=== PATIENT | male | born 1990 | race Caucasian/White ===

== ENCOUNTER 2017-03-09 07:03 | Emergency (ER) | payer OTHER ==
[~2017-03-09] VITALS: Ht 190.5 cm; Wt 165.1 kg
[~2017-03-09 07:03] MED LIST: ATIVAN1 MG PO; PRILOSEC 20 MG20 MG PO
[2017-03-09 09:54] LABS: ABSOLUTE NEUTROPHILS 5.2 thou/uL (1.4-8.2); BASOPHILS 0.8 % (0.0-2.0); EOSINOPHILS 2.7 % (0.0-3.0); HEMATOCRIT 43.6 % (42.0-52.0); LYMPHOCYTES 31.3 % (24.0-44.0); MCH 30.3 pg (26.0-34.0); MCHC 34.5 g/dL (28.0-37.0); MCV 87.8 fL (80.0-100.0); PLATELET COUNT 163 thou/uL (150-400); POLYS 58.2 % (36.0-66.0); RBC 4.97 mil/uL (4.50-6.00); RDW 14.4 % (10.5-14.5); WBC 8.8 thou/uL (4.0-11.0)
[2017-03-09 09:55] LABS: MANUAL DIFF NO
[2017-03-09 10:04] LABS: CALCIUM 9.3 mg/dL (8.5-10.1); POTASSIUM 4.2 mmol/L (3.5-5.1)
[2017-03-09 10:08] LABS: APTT 27.1 Seconds (24.5-32.8)
[2017-03-09 10:10] LABS: TOTAL BILIRUBIN 0.4 mg/dL (<0.1-1.0); TOTAL PROTEIN 7.5 g/dL (6.4-8.2)
[2017-03-09] MEDS ORDERED: LEVSIN0.125 MG PO (10:35)
[2017-03-09] MEDS ORDERED: ANUSOL-HC25 MG RECTAL (10:35)
[2017-03-09] MEDS ORDERED: HYDROCORTISONE30 G9 RECTAL (10:35)
[2017-03-09 11:01] VITALS: BP 148/95
== END 2017-03-09 11:01 | disposition home or self-care (01) ==
LOC: ER 07:03
PROVIDERS: Emergency Medicine
DX: K62.5 Hemorrhage of anus and rectum (principal); G89.29 Other chronic pain; R19.7 Diarrhea, unspecified; R10.9 Unspecified abdominal pain; I10 Essential (primary) hypertension; E78.00 Pure hypercholesterolemia, unspecified; F10.99 Alcohol use, unspecified with unspecified alcohol-induced disorder; K21.9 Gastro-esophageal reflux disease without esophagitis; Z88.8 Allergy status to other drugs, medicaments and biological substances

== ENCOUNTER 2018-03-14 02:14 | Emergency (ER) | payer OTHER ==
[~2018-03-14] VITALS: Ht 190.5 cm; Wt 163.3 kg
[~2018-03-14 02:14] MED LIST changes: +ANUSOL-HC25 MG RECTAL; +HYDROCORTISONE30 G9 RECTAL; +LEVSIN0.125 MG PO; +NORCO 5-325 TA1 EACH PO
[2018-03-14] MEDS ORDERED: MOBIC15 MG PO (02:47)
[2018-03-14 03:06] VITALS: BP 161/77
== END 2018-03-14 03:17 | disposition home or self-care (01) ==
LOC: ER 02:14
DX: H66.91 Otitis media, unspecified, right ear (principal); F17.210 Nicotine dependence, cigarettes, uncomplicated; I10 Essential (primary) hypertension; E78.00 Pure hypercholesterolemia, unspecified; G47.30 Sleep apnea, unspecified; K21.9 Gastro-esophageal reflux disease without esophagitis; E78.5 Hyperlipidemia, unspecified; Z88.8 Allergy status to other drugs, medicaments and biological substances

== ENCOUNTER 2018-08-16 10:07 | Emergency (ER) | payer OTHER ==
[~2018-08-16] VITALS: Ht 190.5 cm; Wt 163.3 kg
[~2018-08-16 10:07] MED LIST changes: +MOBIC15 MG PO
[2018-08-16] MEDS ORDERED: OMEPRAZOLE40 MG PO (10:11)
[2018-08-16] MEDS ORDERED: ERYTHROMYCIN E3.5 G3 OPHTHALMIC (10:37)
[2018-08-16] MEDS ORDERED: TRIAMCINOLONE A80 G2 TOP (10:37)
[2018-08-16] MEDS ORDERED: NEO-POLYMYXIN-H10 ML OTIC (10:37)
[2018-08-16 11:05] VITALS: BP 140/83
== END 2018-08-16 11:06 | disposition home or self-care (01) ==
LOC: ER 10:07
DX: H60.91 Unspecified otitis externa, right ear (principal); H00.015 Hordeolum externum left lower eyelid; H00.012 Hordeolum externum right lower eyelid; L30.8 Other specified dermatitis; F17.210 Nicotine dependence, cigarettes, uncomplicated; I10 Essential (primary) hypertension; E78.00 Pure hypercholesterolemia, unspecified; G47.30 Sleep apnea, unspecified; K21.9 Gastro-esophageal reflux disease without esophagitis; Z88.4 Allergy status to anesthetic agent; Z88.8 Allergy status to other drugs, medicaments and biological substances